=== PATIENT | female | born 1975 ===

== ENCOUNTER 2016-12-14 13:10 | Emergency (ER) | payer MEDICARE ==
[2016-12-14 13:10] VITALS: BMI 39.4
[2016-12-14 13:34] VITALS: RESP 20; O2SAT 99
[2016-12-14] MEDS ORDERED: Oxycodone/Acetaminophen 5/325 mg Tab PO STA ×2 (15:12→17:49)
[2016-12-14] MEDS ORDERED: Oxycodone/Acetaminophen 5/325 mg Tab ONE ×2 (15:31→18:04)
--- NOTE | 2016-12-14 16:34 | RAD ---
PROCEDURE: Right Foot Radiographs. HISTORY: Lateral pain COMPARISON: None. FINDINGS: BONES: Normal. No fracture. JOINTS: Normal. SOFT TISSUES: Normal. OTHER FINDINGS: None. IMPRESSION: Normal right foot radiographs.
--- NOTE | 2016-12-14 17:46 | C.PDOC ---
History Of Present Illness Pt has frequent falls due to her condition (PLS). She states she fall yesterday and c/o pain. - HPI Time Seen by Provider: 12/14/16 14:40 Chief Complaint (Nursing): Trauma History Per: Patient Injury Occurred (Timing): Days Ago: (1) Location Of Injury: Right: Foot, Left: Hip, Posterior: Neck Severity: Moderate Additional History Per: Prior Records - Fall Fall:Prior To Injury: Lost Balance Past Medical History Reviewed: Historical Data, Nursing Documentation, Vital Signs Vital Signs: Last Vital Signs Temp 98.2 F 12/14/16 13:31 Pulse 84 12/14/16 13:31 Resp 20 12/14/16 13:31 BP 118/73 12/14/16 13:31 Pulse Ox 99 12/14/16 17:55 - Medical History PMH: Anemia, Back Problems (ir-retrachtable back pain), Diabetes (type 2), Fibromyalgia, HTN, Chronic Pain Other PMH: Primary Lateral Sclerosis. Surgical History: Appendectomy, Cholecystectomy Family History: States: Unknown Family Hx - Social History Hx Tobacco Use: No Hx Alcohol Use: No Hx Substance Use: No - Immunization History Hx Tetanus Toxoid Vaccination: Yes Hx Influenza Vaccination: Yes (06/2015) Hx Pneumococcal Vaccination: Yes (2013) Review Of Systems Except As Marked, All Systems Reviewed And Found Negative. Constitutional: Negative for: Fever Cardiovascular: Negative for: Chest Pain Respiratory: Negative for: Shortness of Breath Gastrointestinal: Negative for: Vomiting, Abdominal Pain Musculoskeletal: Positive for: Neck Pain, Back Pain, Foot Pain (right) Skin: Negative for: Rash Neurological: Negative for: Seizures, Altered Mental Status, Headache Physical Exam - Physical Exam Appears: Non-toxic, No Acute Distress Skin: Normal Color, Warm, Dry, No Rash Head: Atraumatic, Normacephalic Eye(s): bilateral: PERRL, EOMI Neck: Normal ROM, Paracervical Tenderness, No Step Off Deformity, Supple Chest: Symmetrical, No Deformity Cardiovascular: Rhythm Regular Respiratory: Normal Breath Sounds, No Accessory Muscle Use Gastrointestinal/Abdominal: Soft, No Tenderness Back: No Vertebral Tenderness Extremity: Normal ROM, Tenderness (right foot and left hip), No Deformity Pulses: Left Dorsalis Pedis: Normal, Right Dorsalis Pedis: Normal Neurological/Psych: Oriented x3 ED Course And Treatment - Laboratory Results Urine POC: Negative O2 Sat by Pulse Oximetry: 99 Pulse Ox Interpretation: Normal - Other Rad Right foot x-rays X-Ray: Viewed By Me, Read By Radiologist Interpretation: IMPRESSION: Normal right foot radiographs. C-spine x-rays X-Ray: Interpreted by Me, Viewed By Me Interpretation: No acute fx or subluxation. Left hip x-rays X-Ray: Interpreted by Me, Viewed By Me Interpretation: No acute fx or dislocation. Reassessment Condition: Improved Disposition Counseled Patient/Family Regarding: Studies Performed, Diagnosis, Need For Followup, Rx Given - Disposition Referrals: Sudheer Antunez MD [Staff Provider] - Disposition: HOME/ ROUTINE Disposition Time: 18:07 Condition: IMPROVED Additional Instructions: Follow up with your doctor. Return to the ER if you develop redness, swelling, new weakness or numbness, worsening of symptoms or if you have any other concerns. Prescriptions: oxyCODONE/Acetaminophen [Percocet 5/325 mg Tab] 1 tab PO QID PRN #20 tab PRN Reason: Pain Instructions: Fall Prevention (ED) - Clinical Impression Clinical Impression: Fall, Cervical sprain, Right foot pain, Contusion of left hip
[2016-12-14 18:41] VITALS: BP 94/60; PULSE 76; TEMP 97.9
--- NOTE | 2016-12-15 12:50 | RAD ---
PROCEDURE: Cervical Spine Radiographs. HISTORY: Pain. COMPARISON: None. FINDINGS: BONES: Cervical spine straightening. . No cortical fracture. Tiny limbus vertebrae remnant possible bordering the anterior to C5 superior endplate. Limited visualization of the posterior elements of C7 - the shoulders are obscuring this area despite swimmer's view attempts Dens Intact. DISC SPACES: Normal. SOFT TISSUES: Normal. No prevertebral soft tissue swelling. OTHER FINDINGS: None. IMPRESSION: The posterior elements of C7 are suboptimally visualized due to obscuration by shoulders despite the additional swimmer's view No gross fractures apparent. If clinically indicated consider cervical spine CT
--- NOTE | 2016-12-15 14:41 | RAD ---
PROCEDURE: HISTORY: Pain s/p fall COMPARISON: 11/16/2015 TECHNIQUE: AP view of the pelvis and applicable frog leg views obtained. FINDINGS: There is anterior fusion hardware at L5-S1 appears grossly intact and similar as per the single frontal views Minimal bilateral superolateral hip joint space narrowing with minimal bilateral acetabular spurring is suggested -no change appreciated. No interval fracture or dislocation is suggested. Minimal sacroiliac sclerotic changes are present bilaterally. This also appears similar. Pubic symphyseal joint appears normal. An incidental bone island overlying the right superior acetabulum is [id number] IMPRESSION: No interval pathology noted. Findings as above
== END 2016-12-14 18:41 | disposition home or self-care (01) ==
LOC: C.ER 13:10
DX: S13.9XXA Sprain of joints and ligaments of unspecified parts of neck, initial encounter (principal); S70.02XA Contusion of left hip, initial encounter; M79.671 Pain in right foot; W18.39XA Other fall on same level, initial encounter; Y92.9 Unspecified place or not applicable; G12.21 Amyotrophic lateral sclerosis
CPT/HCPCS: 72040; 73502; 73630; 84703; 99285; G0480

== ENCOUNTER 2017-03-17 11:21 | Emergency (ER) | payer MEDICARE ==
[2017-03-17 11:22] VITALS: BMI 39.4
[2017-03-17 11:30] VITALS: O2SAT 99
[2017-03-17] MEDS ORDERED: Sodium Chloride 0.9% 1,000 ML IV ONE (12:20)
--- NOTE | 2017-03-17 12:20 | C.PDOC ---
History Of Present Illness 41 y/o female with Hx of PLS, chronic back pain and Spinal surgery presents to ED with complaints of left side of body weakness and increased back pain. Patient states she was on Fentanyl patch and reports seeing Neurologist [address] Antunez yesterday and had pain medication dose increased. Today Dr. Antunez sent patient to ED for MRI. Patient denies fever, chills, numbness or any other complaints at this time. Time Seen by Provider: 03/17/17 11:43 Chief Complaint (Nursing): Dizziness/Lightheaded History Per: Patient History/Exam Limitations: no limitations Onset/Duration Of Symptoms: Days Current Symptoms Are (Timing): Still Present Severity: Mild Exacerbating Factor(s): Movement Recent travel outside of the [place]: No Past Medical History Reviewed: Historical Data, Nursing Documentation, Vital Signs Vital Signs: Last Vital Signs Temp 97.8 F 03/17/17 15:25 Pulse 78 03/17/17 15:25 Resp 18 03/17/17 15:25 BP 103/68 03/17/17 15:25 Pulse Ox 99 03/17/17 15:59 - Medical History PMH: Anemia, Back Problems (ir-retrachtable back pain), Diabetes (type 2), Fibromyalgia, HTN, Chronic Pain Surgical History: Appendectomy, Cholecystectomy Family History: States: No Known Family Hx - Social History Hx Tobacco Use: No Hx Alcohol Use: No Hx Substance Use: No - Immunization History Hx Tetanus Toxoid Vaccination: Yes Hx Influenza Vaccination: Yes Hx Pneumococcal Vaccination: Yes (2013) Review Of Systems Except As Marked, All Systems Reviewed And Found Negative. Constitutional: Negative for: Fever, Chills Genitourinary: Positive for: Incontinence (At night). Negative for: Dysuria Musculoskeletal: Positive for: Back Pain, Other (Left side body pain) Skin: Negative for: Rash Neurological: Positive for: Weakness. Negative for: Numbness, Headache Physical Exam - Physical Exam Appears: Non-toxic, No Acute Distress, Other (Obese, Overweight) Skin: Normal Color, Warm, No Rash Head: Atraumatic Eye(s): bilateral: Normal Inspection Oral Mucosa: Moist Chest: Symmetrical Cardiovascular: Rhythm Regular Respiratory: Normal Breath Sounds, No Rales, No Rhonchi, No Wheezing Gastrointestinal/Abdominal: Soft, No Tenderness, No Guarding, No Rebound Back: Other (Left side weaker than right) Neurological/Psych: Oriented x3, Normal Speech, Normal Motor, Normal Sensation Gait: Other (Patient is able to ambulate with brace devices and arm crutches) ED Course And Treatment - Laboratory Results Result Diagrams: 03/17/17 12:31 03/17/17 12:31 Lab Interpretation: Normal Urine POC: Negative O2 Sat by Pulse Oximetry: 99 (RA) Pulse Ox Interpretation: Normal - Other Rad No standard instances X-Ray: Viewed By Me, Read By Radiologist Interpretation: FINDINGS: ALIGNMENT: Normal thoracic spinal alignment. Normal thoracic kyphosis. Stable general appearance compared to prior CT 08/18/2014. A benign hemangiomas incidentally noted T1 vertebral body, completely suppressing on STIR imaging. Overall marrow signal is dark in all sequences could reflect anemia or other myeloproliferative process. Endplate degenerate changes seen the mid thoracic spine anteriorly accompanying multilevel spondylosis. Thoracic spinal cord appears normal in course caliber contour and intrinsic signal the conus medullaris terminating T12-L1 disc interspace level. Prevertebral paraspinal soft tissues appear diffusely unremarkable. VERTEBRA : Vertebral body height are preserved. MARROW: As above. PARASPINAL SOFT TISSUES: As above. CORD: Unremarkable thoracic cord. No volume loss, signal abnormality or syrinx. DISCS: Mild to moderate multilevel disc desiccation is appreciated diffusely. No disc herniation identified. OTHER FINDINGS: None. IMPRESSION: Multilevel thoracic spondylosis is appreciate family anteriorly with no spinal stenosis or disc herniation appreciated throughout. Neural foramina and central canal appear widely patent without interval change greater prior CT 08/18/2014. A benign hemangiomas incidentally captured at the T1 vertebral body. FINDINGS: ALIGNMENT: Normal thoracic spinal alignment. Normal thoracic kyphosis. Stable general appearance compared to prior CT 2014. A benign hemangiomas incidentally noted T1 vertebral body, completely suppressing on STIR imaging. Overall marrow signal is dark in all sequences could reflect anemia or other myeloproliferative process. Endplate degenerate changes seen the mid thoracic spine anteriorly accompanying multilevel spondylosis. Thoracic spinal cord appears normal in course caliber contour and intrinsic signal the conus medullaris terminating T12-L1 disc interspace level. Prevertebral paraspinal soft tissues appear diffusely unremarkable. VERTEBRA : Vertebral body height are preserved. MARROW: As above. PARASPINAL SOFT TISSUES: As above. CORD: Unremarkable thoracic cord. No volume loss, signal abnormality or syrinx. DISCS: Mild to moderate multilevel disc desiccation is appreciated diffusely. No disc herniation identified. OTHER FINDINGS: None. IMPRESSION: Multilevel thoracic spondylosis is appreciate family anteriorly with no spinal stenosis or disc herniation appreciated throughout. Neural foramina and central canal appear widely patent without interval change greater prior CT 08/18/2014. A benign hemangiomas incidentally captured at the T1 vertebral body. Progress Note: Treated with IVF NSS and valium 5 mg PO. Case discussed with Dr Antunez who request MR of lumbar and thoracic spine. On re-evaluation patient is alert in no distress Reassessment Condition: Improved - Physician Consult Information Physician Contacted: Sudheer Antunez Outcome Of Conversation: requesting MRI Medical Decision Making Medical Decision Making: Discussed with who admitted he sent patient for MRI Plan: * MRI * Labs * UA * * Patient ambulates with canes and braces Disposition Discussed With Dr.: Sudheer Antunez Doctor Will See Patient In The: Hospital Counseled Patient/Family Regarding: Studies Performed, Diagnosis, Need For Followup - Disposition Referrals: Garret Uribe MD [Medical Doctor] - Sudheer Antunez MD [Staff Provider] - Disposition: HOME/ ROUTINE Disposition Time: 15:45 Condition: STABLE Additional Instructions: Follow up with your neurologist for further evaluation Instructions: Chronic Back Pain (ED), Back Pain (ED) Forms: [facility] (Slovenian) - POA Present On Arrival: None - Clinical Impression Clinical Impression: Low back pain - Scribe Statement The provider has reviewed the documentation as recorded by the Quetaibcrow Krishna All medical record entries made by the Scribcrow were at my direction and personally dictated by me. I have reviewed the chart and agree that the record accurately reflects my personal performance of the history, physical exam, medical decision making, and the department course for this patient. I have also personally directed, reviewed, and agree with the discharge instructions and disposition.
[2017-03-17 12:34] LABS: BASO % 0.3 % (0.0-2.0); EOS # 0.1 K/uL (0.0-0.7); EOS % 1.6 % (0.0-4.0); LYMPH # 1.9 K/uL (1.0-4.3); LYMPH % 23.9 % (20.0-40.0); MEAN CELL VOLUME 70.6 fL (81.0-99.0); MEAN CORPUSCULAR HGB CONC 31.2 g/dL (33.0-37.0); MEAN PLATELET VOLUME 8.7 fL (7.2-11.7); MONO # 0.5 K/uL (0.0-0.8); MONO % 6.4 % (0.0-10.0); RED CELL DISTRIBUTION WIDTH 15.9 % (11.5-14.5); WHITE BLOOD COUNT 7.7 K/uL (4.8-10.8)
[2017-03-17 12:45] LABS: ALKALINE PHOSPHATASE 89 U/L (38-126); ALT/SGPT 25 U/L (9-52); AST/SGOT 24 U/L (14-36); BILIRUBIN,TOTAL 0.3 mg/dL (0.2-1.3); BLOOD UREA NITROGEN 9 mg/dL (7-17); CALCIUM 8.2 mg/dl (8.6-10.4); CARBON DIOXIDE 25 mmol/L (22-30); CHLORIDE 98 mmol/L (98-107); GFR AFRICAN-AMERICAN > 60; GLUCOSE,RANDOM 119 mg/dL (65-105); POTASSIUM 3.8 mmol/L (3.6-5.2); SODIUM 137 mmol/L (132-148); TOTAL PROTEIN 7.9 g/dL (6.3-8.3)
[2017-03-17 12:57] LABS: RBC URINE 1 /hpf (0-3); URINE BILIRUBIN NEGATIVE (NEGATIVE); URINE BLOOD NEGATIVE (NEGATIVE); URINE COLOR Amber (YELLOW); URINE GLUCOSE (UA) NORMAL (Normal); URINE KETONE NEGATIVE (NEGATIVE); URINE LEUKOCYTE ESTERASE NEG Leu/uL (Negative); URINE PROTEIN NEGATIVE (NEGATIVE); URINE UROBILINOGEN NORMAL mg/dL (0.2-1.0); WBC URINE 1 /hpf (0-5)
--- NOTE | 2017-03-17 14:20 | MRI ---
PROCEDURE: MR THORACIC SPINE WITHOUT CONTRAST HISTORY: weakness COMPARISON: Thorax spine CT 08/18/2014 TECHNIQUE: Multiecho multiplanar sequences were performed through the thoracic spine without the use of intravenous contrast. FINDINGS: ALIGNMENT: Normal thoracic spinal alignment. Normal thoracic kyphosis. Stable general appearance compared to prior CT 08/18/2014. A benign hemangiomas incidentally noted T1 vertebral body, completely suppressing on STIR imaging. Overall marrow signal is dark in all sequences could reflect anemia or other myeloproliferative process. Endplate degenerate changes seen the mid thoracic spine anteriorly accompanying multilevel spondylosis. Thoracic spinal cord appears normal in course caliber contour and intrinsic signal the conus medullaris terminating T12-L1 disc interspace level. Prevertebral paraspinal soft tissues appear diffusely unremarkable. VERTEBRA: Vertebral body height are preserved. MARROW: As above PARASPINAL SOFT TISSUES: As above CORD: Unremarkable thoracic cord. No volume loss, signal abnormality or syrinx. DISCS: Mild to moderate multilevel disc desiccation is appreciated diffusely. No disc herniation identified. OTHER FINDINGS: None. IMPRESSION: Multilevel thoracic spondylosis is appreciate family anteriorly with no spinal stenosis or disc herniation appreciated throughout. Neural foramina and central canal appear widely patent without interval change greater prior CT 08/18/2014. A benign hemangiomas incidentally captured at the T1 vertebral body.
--- NOTE | 2017-03-17 15:08 | MRI ---
PROCEDURE: MR LUMBAR SPINE WITHOUT CONTRAST HISTORY: weakness COMPARISON: None available. TECHNIQUE: Multiecho multiplanar sequences were performed through the lumbar spine without the use of intravenous contrast. FINDINGS: Normal lumbar curvature is preserved. No fracture or spondylolisthesis identified with this patient again seen a status post anterior spinal fusion I compression plate and screws at L5 and S1 vertebral bodies and by intervertebral hardware at the L5-S1 intervertebral disc space. Signal dephasing at the L5-S1 level obscures the marrow at these vertebral bodies with remaining vertebral bodies diffusely unremarkable throughout, once again. Conus medullaris remains normal in intrinsic signal terminating at L1 with prevertebral and paraspinal and paraspinal soft tissues remaining diffusely unremarkable moderate hydration remains at the remaining intervertebral discs throughout the lumbar spine and incidentally viewed inferior thoracic intervertebral discs. T12-L1: No disc herniation, spinal canal stenosis or neural foraminal narrowing. L1-2: No disc herniation, spinal canal stenosis or neural foraminal narrowing. L2-3: Mild facet arthropathy is appreciated without disc herniation, central canal or neural foraminal stenosis. L3-4: There is some motion motion artifact distorting this level however facet arthropathy appears mild to moderate severity and encroaches the bilateral lateral recesses without significantly disturbing the thecal sac. Nevertheless borderline central stenosis results. No disc herniation. No significant neural foraminal stenosis L4-5: A mild degenerate stenosis caused by minimal generalized disc bulging and moderate facet arthropathy, asymmetric greater the left and right sides with encroachment noted at the left greater the right lateral recess. Mild left neural foraminal stenosis appreciate with none on the right. No disc herniation. L5-S1: No acute disc herniation is appreciated status post fusion here, however, resume bony fusion indents the ventral thecal sac once again without interval change somewhat encroachment lateral recesses without generalized central canal stenosis occurring. No neural foraminal stenosis. OTHER FINDINGS: None. IMPRESSION: 1. Status post anterior spinal fusion at L5-S1 compression plate as well as intervertebral device, unchanged in appearance in the interval. Posterior bony fusion creates a mild ventral epidural defect as discussed above, stable in the interval. 2. Interval increased degenerative disc and facet joint changes result in mild central stenosis at L4-5 and appear borderline at L3-4 without interval disc herniation.
[2017-03-17 15:26] VITALS: BP 103/68; PULSE 78; RESP 18; TEMP 97.8
== END 2017-03-17 16:08 | disposition home or self-care (01) ==
LOC: C.ER 11:21
DX: M54.5 Low back pain (principal)
CPT/HCPCS: 72146; 72148; 80053; 81001; 84703; 85025; 96360; 99285; J7040

== ENCOUNTER 2017-06-21 08:58 | Emergency (ER) | payer MEDICARE ==
[2017-06-21 08:58] VITALS: BMI 39.4
[2017-06-21 09:21] VITALS: BP 124/86; PULSE 78; RESP 18; TEMP 98.7; O2SAT 99
--- NOTE | 2017-06-21 09:33 | C.PDOC ---
History Of Present Illness 41 yr old female with PMHx of PLS, diabetes, chronic pain and fibromyalgia, presents to the ER stating this morning when she was getting out of bed she lost her balance and fell forward, hitting her face against the wall. Patient states she uses bilateral canes for balance. Reports of pain to the nose, associated with bleeding and swelling also reports of frontal facial pain and neck pain. Patient states the pain is 8/10. Patient states she used a fentanyl patch and percocet this morning. Denies LOC, head injury, vision changes, chest pain, SOB, nausea, vomiting, headache, weakness or numbness. - HPI Time Seen by Provider: 06/21/17 09:27 Chief Complaint (Nursing): Trauma History Per: Patient History/Exam Limitations: no limitations Onset/Duration Of Symptoms: Sudden Onset (OYSTER FLOATER) Past Medical History Reviewed: Historical Data, Nursing Documentation, Vital Signs Vital Signs: Last Vital Signs Temp 98.7 F 06/21/17 09:15 Pulse 78 06/21/17 09:15 Resp 18 06/21/17 09:15 BP 124/86 06/21/17 09:15 Pulse Ox 99 06/21/17 11:52 - Medical History PMH: Anemia, Back Problems (ir-retrachtable back pain), Diabetes (type 2), Fibromyalgia, HTN, Chronic Pain Surgical History: Appendectomy, Cholecystectomy Family History: States: No Known Family Hx - Social History Hx Tobacco Use: No Hx Alcohol Use: No Hx Substance Use: No - Immunization History Hx Tetanus Toxoid Vaccination: Yes Hx Influenza Vaccination: Yes Hx Pneumococcal Vaccination: Yes (2013) Review Of Systems Except As Marked, All Systems Reviewed And Found Negative. Constitutional: Positive for: Other ((+) Facial pain) Eyes: Negative for: Vision Change ENT: Positive for: Nose Pain (with bleeding and swelling.) Cardiovascular: Negative for: Chest Pain Respiratory: Negative for: Shortness of Breath Gastrointestinal: Negative for: Nausea, Vomiting Musculoskeletal: Positive for: Neck Pain Neurological: Negative for: Weakness, Numbness, Headache Physical Exam - Physical Exam Appears: Non-toxic, No Acute Distress, Other ((+) Obese.) Skin: Warm, Dry, Other ((+) Bruising to the forehead.) Head: Atraumatic, Normacephalic Eye(s): bilateral: Normal Inspection, PERRL, EOMI Nose: Other ((+) Bruising and swelling to the nose. Dry blood in the nares. ) Neck: Normal ROM, Supple, Other ((+) Mild midline tenderness) Chest: Symmetrical, No Tenderness Cardiovascular: Rhythm Regular, No Murmur Respiratory: Normal Breath Sounds, No Rales, No Rhonchi, No Stridor, No Wheezing Extremity: Normal ROM, No Swelling Neurological/Psych: Oriented x3, Normal Speech, Normal Motor ED Course And Treatment O2 Sat by Pulse Oximetry: 99 (RA) Pulse Ox Interpretation: Normal - CT Scan/US CT - Maxillofacial Other Rad Studies (CT/US): Read By Radiologist, Radiology Report Reviewed CT/US Interpretation: CT maxillofacial bones without IV contrast. Indication: fall, face, nose pain. Comparison: None available. Technique: Axial computed tomography images were obtained of the maxillofacial bones without the use of intravenous contrast. Coronal and sagittal reformatted images were generated and reviewed. This CT exam was performed using 1 or more of the falling dose reduction techniques: Automated exposure control, adjustment of the MAA and/or kV according to patient size, and/or use of iterative reconstruction technique. Radiation dose: Total exam DLP = 781.45 mGy-cm. Findings: Streak artifact from dental hardware. Facial soft tissue swelling particularly at the level of the nasal bones. The facial bones appear intact without acute displaced fracture identified. The orbits appear unremarkable. Temporomandibular joints are located. The mastoid air cells appear clear. The paranasal sinuses appear clear. No air-fluid levels appreciated. The visualized brain appears unremarkable. Incidental note is made of enlarged bilateral lymph nodes, nonspecific. Impression: Facial soft tissue swelling particularly at the level of the nasal bones. Otherwise, no acute findings identified. See above. CT - Cervical Spine Other Rad Studies (CT/US): Read By Radiologist, Radiology Report Reviewed CT/US Interpretation: CT cervical spine without IV contrast. Indication: Fall, against the wall, neck pain. Comparison: None available. Technique: Axial computed tomography images were obtained of the cervical spine without the use of intravenous contrast. Coronal and sagittal reformatted images were created and reviewed. This CT exam was performed using 1 or more of the falling dose reduction techniques: Automated exposure control, adjustment of the MAA and/or kV according to patient size, and/or use of iterative reconstruction technique. Radiation dose: Total exam DLP = 653.77 MGy-cm. Findings: Straightening of the normal cervical lordosis may be related to muscle spasm or positioning. There is no evidence of acute fracture or subluxation. There is preserved alignment, vertebral body height, intervertebral disc spaces. The prevertebral soft tissues and spinolaminar lines appear intact. The lateral masses are preserved. The dens tip is intact. There is proper alignment of the lateral masses of C1 with the C2 vertebral body. Included portions of the thyroid gland appear unremarkable. Included portions of lung apices demonstrate patchy opacities at the right lung apex, possibly infiltrate or atelectasis. Impression: No evidence of acute fracture or subluxation. Straightening of the normal cervical lordosis may be related to muscle spasm or positioning. Patchy opacities at the right lung apex, possibly infiltrate or atelectasis. Medical Decision Making Medical Decision Making: PLAN: * CT - Maxillofacial, Cervical Spine * POC Disposition Counseled Patient/Family Regarding: Diagnosis, Need For Followup - Disposition Disposition: HOME/ ROUTINE Disposition Time: 11:54 Condition: IMPROVED Instructions: RICE Therapy (ED) Forms: [facility] (Marshallese), General Discharge Instructions - POA Present On Arrival: None - Clinical Impression Clinical Impression: Contusion, Sprain - Scribe Statement The provider has reviewed the documentation as recorded by the Marlen Galeana Provider Attestation: All medical record entries made by the Marlen were at my direction and personally dictated by me. I have reviewed the chart and agree that the record accurately reflects my personal performance of the history, physical exam, medical decision making, and the department course for this patient. I have also personally directed, reviewed, and agree with the discharge instructions and disposition.
--- NOTE | 2017-06-21 11:05 | CT ---
CT maxillofacial bones without IV contrast Indication: fall, face, nose pain Comparison: None available. Technique: Axial computed tomography images were obtained of the maxillofacial bones without the use of intravenous contrast. Coronal and sagittal reformatted images were generated and reviewed. This CT exam was performed using 1 or more of the falling dose reduction techniques: Automated exposure control, adjustment of the MAA and/or kV according to patient size, and/or use of iterative reconstruction technique. Radiation dose: Total exam DLP = 781.45 mGy-cm. Findings: Streak artifact from dental hardware. Facial soft tissue swelling particularly at the level of the nasal bones. The facial bones appear intact without acute displaced fracture identified. The orbits appear unremarkable. Temporomandibular joints are located. The mastoid air cells appear clear. The paranasal sinuses appear clear. No air-fluid levels appreciated. The visualized brain appears unremarkable. Incidental note is made of enlarged bilateral lymph nodes, nonspecific. Impression: Facial soft tissue swelling particularly at the level of the nasal bones. Otherwise, no acute findings identified. See above.
--- NOTE | 2017-06-21 11:16 | CT ---
CT cervical spine without IV contrast Indication: Fall, against the wall, neck pain Comparison: None available Technique: Axial computed tomography images were obtained of the cervical spine without the use of intravenous contrast. Coronal and sagittal reformatted images were created and reviewed. This CT exam was performed using 1 or more of the falling dose reduction techniques: Automated exposure control, adjustment of the MAA and/or kV according to patient size, and/or use of iterative reconstruction technique. Radiation dose: Total exam DLP = 653.77 MGy-cm. Findings: Straightening of the normal cervical lordosis may be related to muscle spasm or positioning. There is no evidence of acute fracture or subluxation. There is preserved alignment, vertebral body height, intervertebral disc spaces. The prevertebral soft tissues and spinolaminar lines appear intact. The lateral masses are preserved. The dens tip is intact. There is proper alignment of the lateral masses of C1 with the C2 vertebral body. Included portions of the thyroid gland appear unremarkable. Included portions of lung apices demonstrate patchy opacities at the right lung apex, possibly infiltrate or atelectasis. Impression: No evidence of acute fracture or subluxation. Straightening of the normal cervical lordosis may be related to muscle spasm or positioning. Patchy opacities at the right lung apex, possibly infiltrate or atelectasis.
== END 2017-06-21 12:03 | disposition home or self-care (01) ==
LOC: C.ER 08:58
DX: S00.83XA Contusion of other part of head, initial encounter (principal); W01.198A Fall on same level from slipping, tripping and stumbling with subsequent striking against other object, initial encounter; Y93.89 Activity, other specified; Y92.003 Bedroom of unspecified non-institutional (private) residence as the place of occurrence of the external cause

== ENCOUNTER 2018-07-11 13:03 | Observation (INO) | payer MEDICARE ==
[2018-07-11 13:04] VITALS: BMI 39.4
--- NOTE | 2018-07-11 14:43 | C.PDOC ---
History Of Present Illness Patient brought in via BLS after slip and fall on floor today at home. Patient has PLS, chronic pain and fibromyalgia. She states she was mopping the floor and slipped and fell hurting her left thigh and leg, she felt a "pull and crunch". Patient states pain is severe and she took Oxycodone and Naproxen without relief. Patient requesting MRI. Time Seen by Provider: 07/11/18 14:17 Chief Complaint (Nursing): Lower Extremity Problem/Injury Past Medical History Vital Signs: Last Vital Signs Temp 98.2 F 07/11/18 13:28 Pulse 73 07/11/18 13:28 Resp 20 07/11/18 13:28 BP 126/70 07/11/18 13:28 Pulse Ox 97 07/11/18 13:28 - Medical History PMH: Anemia, Back Problems, Diabetes (type 2), Fibromyalgia, HTN, Seizures, Chronic Pain Surgical History: Appendectomy, Back Surgery (spinal fusion), Cholecystectomy Family History: States: Unknown Family Hx - Social History Hx Tobacco Use: No Hx Alcohol Use: No Hx Substance Use: No (Medical Marijuana) - Immunization History Hx Tetanus Toxoid Vaccination: Yes Hx Influenza Vaccination: Yes Hx Pneumococcal Vaccination: Yes Review Of Systems Except As Marked, All Systems Reviewed And Found Negative. Musculoskeletal: Positive for: Leg Pain Physical Exam - Physical Exam Appears: Non-toxic, No Acute Distress Skin: Warm, Dry, No Rash, No Ecchymosis Head: Atraumatic, Normacephalic Eye(s): bilateral: Normal Inspection, EOMI Cardiovascular: Rhythm Regular Respiratory: Normal Breath Sounds, No Wheezing Gastrointestinal/Abdominal: Soft (obese) Back: Normal Inspection, No Vertebral Tenderness, No Paraspinal Tenderness, Other (buttocks tender left side) Extremity: No Normal ROM (limited to left leg secondary to pain), No Calf Tenderness, No Deformity, No Swelling, Other (diffuse tenderness to left thigh anterior and posteriorly ) Extremity: Bilateral: Hips Non-Tender Neurological/Psych: Oriented x3, Normal Speech Gait: Unable To Assess ED Course And Treatment O2 Sat by Pulse Oximetry: 97 (RA) Pulse Ox Interpretation: Normal - CT Scan/US Lower Ext. CT Other Rad Studies (CT/US): Read By Radiologist CT/US Interpretation: FINDINGS: BONES: No evidence of acute displaced fracture nor dislocation.. Tiny elliptical shaped bone island or osteoma seen within the medial aspect distal right femoral metaphysis... Unremarkable. No dislocation. No degenerative changes. SOFT TISSUES: . No significant joint effusion. IMPRESSION: No evidence of acute displaced fracture nor dislocation. Medical Decision Making Medical Decision Making: Impression: Leg pain, muscle strain from fall Patient is demanding MRI because of her condition. I discussed case with DR Orozco who then spoke with patient and PMD DR Sudheer Antunez. The plan is to admit patient for observation to have MRI done inpatient. Patient given Morphine for pain. Disposition - Disposition Disposition: HOSPITALIZED Disposition Time: 14:47 Condition: STABLE - POA Present On Arrival: Falls Or Trauma - Clinical Impression Clinical Impression: Muscle strain of lower leg Decision To Admit - Pt Status Changed To: Hospital Disposition Of: Observation - . Bed Request Type: Regular Admitting Physician: Sudheer Antunez Patient Diagnosis: Muscle strain of lower leg
--- NOTE | 2018-07-11 15:58 | CT ---
Date of service: 07/11/2018 PROCEDURE: CT of the Left knee HISTORY: Status post fall with pain COMPARISON: Comparison made with prior plain film radiographs of the left 11/16/2015. TECHNIQUE: Contiguous axial images of the left hip were obtained. Coronal and sagittal reformats were generated. Radiation dose: Total exam DLP = 566.08 mGy-cm. This CT exam was performed using one or more of the following dose reduction techniques: Automated exposure control, adjustment of the mA and/or kV according to patient size, and/or use of iterative reconstruction technique. FINDINGS: BONES: No evidence of acute displaced fracture nor dislocation.. Tiny elliptical shaped bone island or osteoma seen within the medial aspect distal right femoral metaphysis... Unremarkable. No dislocation. No degenerative changes. SOFT TISSUES: . No significant joint effusion. IMPRESSION: No evidence of acute displaced fracture nor dislocation.
[2018-07-11] MEDS ORDERED: Morphine 4 MG/ML VIAL ONE (16:10)
[2018-07-11 16:46] LABS: MEAN CORPUSCULAR HEMOGLOBIN 25.8 pg (27.0-31.0); MEAN CORPUSCULAR HGB CONC 32.5 g/dL (33.0-37.0); MEAN PLATELET VOLUME 9.1 fL (7.2-11.7); RBC 4.66 Mil/uL (3.80-5.20); RED CELL DISTRIBUTION WIDTH 13.7 % (11.5-14.5); WHITE BLOOD COUNT 9.3 K/uL (4.8-10.8)
[2018-07-11 17:03] LABS: ALB/GLOB RATIO 1.1 (1.0-2.1); ALT/SGPT 41 U/L (9-52); AST/SGOT 58 U/L (14-36); BLOOD UREA NITROGEN 8 mg/dL (7-17); CALCIUM 8.9 mg/dl (8.6-10.4); GFR NON-AFRICAN AMERICAN > 60
[2018-07-11 17:06] LABS: MEAN CELL VOLUME 79.4 fL (81.0-99.0)
[2018-07-11 19:21] VITALS: RESP 20
[2018-07-12] MEDS: Metoprolol Succinate 100 mg XL Tab PO SCH (09:54)
--- NOTE | 2018-07-12 14:42 | MRI ---
MRI left thigh History: Injury. COMPARISON: None available. Technique: Multi-echo multiplanar sequences were performed through the left thigh without the use of intravenous contrast. Findings: Apparent complete rupture of the proximal left hamstring tendon origins from its insertion on the ischial tuberosity with tendon retraction measuring approximately 2.3 centimeters. In addition, there is a large amount of increased signal seen within the visualized musculature of the posterior and medial thigh including the adductor muscle, semimembranosus muscle, semi tendinosis muscle, and proximal portion of the long head of the biceps femoris muscle suggestive for partial intramuscular tearing and or high grade strain. Prominent amount of fluid and edema noted within the musculature and adjacent myofascial planes. In addition, there appears to be a prominent hematogenous collection/hematoma demonstrating heterogeneous T1 signal, heterogeneously increased T2 signal, and increased STIR signal seen within the posterior thigh best seen on series 7, image 23 and series 2, image 13 measuring up to 7.3 x 3.2 x 15.7 centimeters seen at the level between the myofascial planes of the adductor muscle, semi membranous muscle, and semitendinosis muscles at their proximal to mid aspects. Additional etiologies are not excluded and continued interval follow-up is recommended to ensure resolution and exclude additional etiologies such as underlying mass lesion. Clinical correlation. Fluid and edema noted at the level of the left greater trochanteric bursa. Visualized osseous structures appear grossly preserved. Heterogeneity of the visualized marrow with patchy decreased T1 signal suggestive for hematopoietic marrow reconversion. Impression: Apparent complete rupture of the proximal left hamstring tendon origins from its insertion on the ischial tuberosity with tendon retraction measuring approximately 2.3 centimeters. In addition, there is a large amount of increased signal seen within the visualized musculature of the posterior and medial thigh including the adductor muscle, semimembranosus muscle, semi tendinosis muscle, and proximal portion of the long head of the biceps femoris muscle suggestive for partial intramuscular tearing and or high grade strain. Prominent amount of fluid and edema noted within the musculature and adjacent myofascial planes. In addition, there appears to be a prominent hematogenous collection/hematoma demonstrating heterogeneous T1 signal, heterogeneously increased T2 signal, and increased STIR signal seen within the posterior thigh best seen on series 7, image 23 and series 2, image 13 measuring up to 7.3 x 3.2 x 15.7 centimeters seen at the level between the myofascial planes of the adductor muscle, semi membranous muscle, and semitendinosis muscles at their proximal to mid aspects. Additional etiologies are not excluded and continued interval follow-up is recommended to ensure resolution and exclude additional etiologies such as underlying mass lesion. Clinical correlation. Fluid and edema noted at the level of the left greater trochanteric bursa.
[2018-07-12] MEDS: Enoxaparin 40 mg Syringe SC SCH (16:17)
--- NOTE | 2018-07-12 20:17 | CP.PCM.HP ---
History of Present Illness - History of Present Illness History of Present Illness: Patient brought in via BLS after slip and fall on floor today at home. Patient has PLS, chronic pain and fibromyalgia. She states she was mopping the floor and slipped and fell hurting her left thigh and leg, she felt a "pull and crunch". Patient states pain is severe and she took Oxycodone and Naproxen without relief. Patient requesting MRI. > After above events I was called by and presented with the situation. Recommendation was to give patient pain medication and discharge her home. [place] had been on multiple pain medications because of her peripheral lateral sclerosis, fibromyalgia, seizures. diabetes, hypertension, and get dysfunction. Patient lives independently with her roommate who is also disabled. Patient is unable to stand and carry her weight when seen. As patient was unable to care for herself I requested that patient be admitted for observation and in order to be able to obtain some much-needed testing And make sure patient is safe and did not sustain any injuries. Present on Admission - Present on Admission Any Indicators Present on Admission: No History of DVT/PE: No History of Uncontrolled Diabetes: No Urinary Catheter: No Decubitus Ulcer Present: No Decubitus Ulcer Location: none History Surgical Site Infection Following: None Review of Systems - Review of Systems All systems: reviewed and no additional remarkable complaints except Review of Systems: inability to walk 2ndry to pain Past Patient History - Infectious Disease Hx of Infectious Diseases: None - Tetanus Immunizations Tetanus Immunization: Unknown - Past Medical History & Family History Past Medical History?: Yes Past Family History: Reviewed and not pertinent - Past Social History Smoking Status: Never Smoked Chewing Tobacco Use: No Cigar Use: No (in medical marijuana program) Occupation: 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, a variant of Aline Gehrig's Alcohol: Social Drugs: Cannabis Home Situation {Lives}: With Family, Roommate - CARDIAC Hx Hypertension: Yes - PULMONARY Hx Respiratory Disorders: No - NEUROLOGICAL Hx Seizures: Yes - HEENT Hx HEENT Problems: No - ENDOCRINE/METABOLIC Hx Endocrine Disorders: Yes Hx Diabetes Mellitus Type 2: Yes - HEMATOLOGICAL/ONCOLOGICAL Hx Anemia: Yes - INTEGUMENTARY Hx Dermatological Problems: No - MUSCULOSKELETAL/RHEUMATOLOGICAL Hx Musculoskeletal Disorders: Yes Hx Degenerative Joint Disease: Yes (spinal) - GASTROINTESTINAL Hx Gastrointestinal Disorders: Yes Hx Nausea: Yes - GENITOURINARY/GYNECOLOGICAL Hx Genitourinary Disorders: No - PSYCHIATRIC Hx Substance Use: No (Medical Marijuana) - SURGICAL HISTORY Hx Appendectomy: Yes Hx Cholecystectomy: Yes - ANESTHESIA Hx Anesthesia: Yes Hx Anesthesia Reactions: No Hx Malignant Hyperthermia: No Meds Allergies/Adverse Reactions: Allergies Allergy/AdvReac Type Severity Reaction Status Date / Time black pepper Allergy Verified 06/21/17 09:25 shellfish derived Allergy Verified 06/21/17 09:25 iv contrast Allergy Uncoded 03/17/17 11:31 Physical Exam - Constitutional Appears: In Acute Distress Additional comments: 2ndry pain of left posterior thigh - Head Exam Head Exam: ATRAUMATIC, NORMAL INSPECTION - Eye Exam Eye Exam: Normal appearance Pupil Exam: NORMAL ACCOMODATION - ENT Exam ENT Exam: Mucous Membranes Moist, Normal Exam - Neck Exam Neck exam: Positive for: Normal Inspection - Respiratory Exam Respiratory Exam: Clear to Auscultation Bilateral, NORMAL BREATHING PATTERN - Cardiovascular Exam Cardiovascular Exam: REGULAR RHYTHM - GI/Abdominal Exam GI & Abdominal Exam: Normal Bowel Sounds, Soft. absent: Tenderness - Rectal Exam Rectal Exam: NORMAL INSPECTION - Exam Exam: Circumcision, NORMAL INSPECTION External exam: NORMAL EXTERNAL EXAM Speculum exam: NORMAL SPECULUM EXAM Bimanual exam: NORMAL BIMANUAL EXAM - Extremities Exam Extremities exam: Positive for: tenderness Additional comments: + fist sized mass on L posterior thigh with discoloration - Back Exam Back exam: NORMAL INSPECTION - Neurological Exam Neurological exam: Alert, CN II-XII Intact, Normal Gait, Oriented x3, Reflexes Normal - Psychiatric Exam Psychiatric exam: Normal Affect, Normal Mood - Skin Skin Exam: Dry, Intact, Normal Color, Warm Results - Vital Signs Recent Vital Signs: Last Vital Signs Temp 98.2 F 07/12/18 15:25 Pulse 87 07/12/18 15:25 Resp 20 07/12/18 15:25 BP 100/65 07/12/18 15:25 Pulse Ox 97 07/12/18 15:25 - Labs Result Diagrams: 07/13/18 11:06 07/13/18 11:06 Labs: Laboratory Results - last 24 hr 07/11/18 07/12/18 07/12/18 21:15 07:29 11:32 POC Glucose (mg/dL) 142 H 140 H 135 H Assessment & Plan (1) Muscle strain of lower leg Assessment and Plan: Will order for a CT of the lower extremity to rule out any occult bony injuries. Status: Acute (2) Ambulatory dysfunction Assessment and Plan: Will observe patient's ambulation relative to her normal patterns. Currently it is difficult to evaluate whether from physical exam all injuries were properly addressed and patient's safety assured if sent home. Aat least an observation admission is warranted Status: Acute (3) Contusion Assessment and Plan: Pain control an observation for development of any hematogenous collection Status: Acute (4) Lateral sclerosis Assessment and Plan: Mainly peripheral in location but Progressive in nature. Patient suffers from frequent Falls and will obtain Physical Therapy consult for balance and gait remediation. Status: Acute
--- NOTE | 2018-07-13 08:43 | CP.PCM.CON ---
<Olga LidiaCarolin A - Last Filed: 07/13/18 12:42> History of Present Illness - History of Present Illness History of Present Illness: orthopedic consult Dr. Preston 42F complains of left leg pain after slip and fall 2 days ago at home while mopping. She says her legs split and as she went down. 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 She uses crutches to ambulate, but is able to walk around her apartment most days without any assistive device. She denies numbness/tingling. Denies CP/SOB/dizziness. No head injury. No pain in other extremities. Kevin n/v/fever/chills. Review of Systems - Review of Systems All systems: reviewed and no additional remarkable complaints except - Cardiovascular Cardiovascular: As Per HPI - Respiratory Respiratory: As Per HPI - Gastrointestinal Gastrointestinal: As Per HPI - Musculoskeletal Musculoskeletal: As Per HPI - Neurological Neurological: As Per HPI - Hematologic/Lymphatic Hematologic: absent: As Per HPI, Easy Bleeding, Easy Bruising, Lymphadenopathy, Other Past Patient History - Infectious Disease Hx of Infectious Diseases: None - Past Medical History & Family History Past Medical History?: Yes Past Family History: Reviewed and not pertinent - Past Social History Smoking Status: Never Smoked - CARDIAC Hx Hypertension: Yes - PULMONARY Hx Respiratory Disorders: No - NEUROLOGICAL Hx Seizures: Yes - HEENT Hx HEENT Problems: No - ENDOCRINE/METABOLIC Hx Endocrine Disorders: Yes Hx Diabetes Mellitus Type 2: Yes - HEMATOLOGICAL/ONCOLOGICAL Hx Anemia: Yes - INTEGUMENTARY Hx Dermatological Problems: No - MUSCULOSKELETAL/RHEUMATOLOGICAL Hx Musculoskeletal Disorders: Yes Hx Degenerative Joint Disease: Yes (spinal) Hx Falls: Yes (Primary lateral sclerosis) - GASTROINTESTINAL Hx Gastrointestinal Disorders: Yes Hx Nausea: Yes - GENITOURINARY/GYNECOLOGICAL Hx Genitourinary Disorders: No - PSYCHIATRIC Hx Substance Use: No (Medical Marijuana) - SURGICAL HISTORY Hx Appendectomy: Yes Hx Cholecystectomy: Yes - ANESTHESIA Hx Anesthesia: Yes Hx Anesthesia Reactions: No Hx Malignant Hyperthermia: No Meds Allergies/Adverse Reactions: Allergies Allergy/AdvReac Type Severity Reaction Status Date / Time black pepper Allergy Verified 06/21/17 09:25 shellfish derived Allergy Verified 06/21/17 09:25 iv contrast Allergy Uncoded 03/17/17 11:31 - Medications Medications: Current Medications Alprazolam (Xanax) 0.5 mg PO HS PRN PRN Reason: Anxiety Last Admin: 07/12/18 21:06 Dose: 0.5 mg Baclofen (Lioresal) 20 mg PO QID [facility] Last Admin: 07/12/18 22:21 Dose: 20 mg Duloxetine HCl (Cymbalta) 30 mg PO 1000,2200 [facility] Last Admin: 07/12/18 21:10 Dose: 30 mg Enoxaparin Sodium (Lovenox) 40 mg SC DAILY [facility] Last Admin: 07/12/18 16:17 Dose: 40 mg Gabapentin (Neurontin) 600 mg PO Q8 [facility] Last Admin: 07/12/18 21:10 Dose: 600 mg Levetiracetam (Keppra) 250 mg PO 1000,2200 [facility] Last Admin: 07/12/18 21:10 Dose: 250 mg Metformin HCl (Glucophage) 500 mg PO BIDCC [facility] Last Admin: 07/13/18 08:26 Dose: 500 mg Metoprolol Succinate (Toprol Xl) 100 mg PO DAILY [facility] Last Admin: 07/12/18 09:54 Dose: 100 mg Morphine Sulfate (Morphine) 2 mg IVP Q4 PRN PRN Reason: pain Last Admin: 07/13/18 08:38 Dose: 2 mg Ondansetron HCl (Zofran Inj) 4 mg IVP Q6 PRN PRN Reason: Nausea/Vomiting Last Admin: 07/12/18 22:31 Dose: 4 mg Pneumococcal Polyvalent Vaccine (Pneumovax 23 Vaccine) 0.5 ml IM .ONCE ONE Stop: 07/14/18 10:01 Zolpidem Tartrate (Ambien) 5 mg PO [facility] Last Admin: 07/12/18 21:10 Dose: 5 mg Physical Exam - Constitutional Appears: Well, No Acute Distress - Head Exam Head Exam: ATRAUMATIC - Neck Exam Neck exam: Positive for: Full Rom, Normal Inspection - Extremities Exam Additional comments: lies on right side. TTP to posterior left thigh, worse proximally, swelling noted to same. +ROM ankle DF/PF 4+/5, sensation intact LLE calves soft NT neg homans +DP/PT pulses - Neurological Exam Neurological exam: Alert, Oriented x3 - Psychiatric Exam Psychiatric exam: Normal Affect, Normal Mood - Skin Skin Exam: Dry, Intact, Warm Results - Vital Signs Recent Vital Signs: Last Vital Signs Temp 98.6 F 07/13/18 08:38 Pulse 119 H 07/13/18 08:38 Resp 20 07/13/18 08:38 BP 126/82 07/13/18 08:38 Pulse Ox 98 07/13/18 08:38 - Labs Result Diagrams: 07/13/18 11:06 07/13/18 11:06 Labs: Laboratory Results - last 24 hr 07/12/18 11:32 POC Glucose (mg/dL) 135 H - Impressions Impression: atient Name / ID : [id number] CHIU / [id number] Exam Date : 07/12/2018 10:28:11 ( Approved ) Study Comment : Sex / Age : F / 42Y Creator : Peter Patricia MD Dictator : Peter Patricia MD Parts Identification Technician : Rigger Apprentice : Peter Patricia MD Approver2 : Report Date : 07/12/2018 14:36:20 My Comment : MRI left thigh History: Injury. COMPARISON: None available. Technique: Multi-echo multiplanar sequences were performed through the left thigh without the use of intravenous contrast. Findings: Apparent complete rupture of the proximal left hamstring tendon origins from its insertion on the ischial tuberosity with tendon retraction measuring approximately 2.3 centimeters. In addition, there is a large amount of increased signal seen within the visualized musculature of the posterior and medial thigh including the adductor muscle, semimembranosus muscle, semi tendinosis muscle, and proximal portion of the long head of the biceps femoris muscle suggestive for partial intramuscular tearing and or high grade strain. Prominent amount of fluid and edema noted within the musculature and adjacent myofascial planes. In addition, there appears to be a prominent hematogenous collection/hematoma demonstrating heterogeneous T1 signal, heterogeneously increased T2 signal, and increased STIR signal seen within the posterior thigh best seen on series 7, image 23 and series 2, image 13 measuring up to 7.3 x 3.2 x 15.7 centimeters seen at the level between the myofascial planes of the adductor muscle, semi membranous muscle, and semitendinosis muscles at their proximal to mid aspects. Additional etiologies are not excluded and continued interval follow-up is recommended to ensure resolution and exclude additional etiologies such as underlying mass lesion. Clinical correlation. Fluid and edema noted at the level of the left greater trochanteric bursa. Visualized osseous structures appear grossly preserved. Heterogeneity of the visualized marrow with patchy decreased T1 signal suggestive for hematopoietic marrow reconversion. Impression: Apparent complete rupture of the proximal left hamstring tendon origins from its insertion on the ischial tuberosity with tendon retraction measuring approximately 2.3 centimeters. In addition, there is a large amount of increased signal seen within the visualized musculature of the posterior and medial thigh including the adductor muscle, semimembranosus muscle, semi tendinosis muscle, and proximal portion of the long head of the biceps femoris muscle suggestive for partial intramuscular tearing and or high grade strain. Prominent amount of fluid and edema noted within the musculature and adjacent myofascial planes. In addition, there appears to be a prominent hematogenous collection/hematoma demonstrating heterogeneous T1 signal, heterogeneously increased T2 signal, and increased STIR signal seen within the posterior thigh best seen on series 7, image 23 and series 2, image 13 measuring up to 7.3 x 3.2 x 15.7 centimeters seen at the level between the myofascial planes of the adductor muscle, semi membranous muscle, and semitendinosis muscles at their proximal to mid aspects. Additional etiologies are not excluded and continued interval follow-up is recommended to ensure resolution and exclude additional etiologies such as underlying mass lesion. Clinical correlation. Fluid and edema noted at the level of the left greater trochanteric bursa. Assessment & Plan (1) Complete rupture of left proximal hamstring tendon Assessment and Plan: due to leg swelling, will check dopplers r/o DVT Dr. Yeboah not construction executive, defers consult to ortho construction executive Dr. Kary Preston states non operative mgmt, NWB with left knee immobilizer, PT recommend continued VTE proph as at risk for VTE, defer to Dr. Antunez patient to follow up as outpt ortho in plan per Dr. Preston Status: Acute (2) Lateral sclerosis Status: Acute <Anna Shaver S - Last Filed: 07/13/18 22:32> History of Present Illness - History of Present Illness History of Present Illness: Patient seen and examined today, 07/13/18. complains of 9/10 pain at the left buttocks. Pain with hip extension or knee flexion localized to the L buttocks. Denies numbness, tingling, syncope, headache, nausea and vomiting, chest pain, shortness of breath, calf pain. Physical Exam - Extremities Exam Additional comments: right lower extremity: - Tenderness to palpation - swelling/erythema/warmth/ecchymosis, full range of motion at all joints without pain +5/5 motor strength hip flexion/extension, knee flexion/extension, ankle dorsiflexion/plantarflexion, toes up and down Sensory intact L2-S1, deep peroneal nerve/ti tibial nerve/superficial peroneal nerve 2+ dorsalis pedis pulse, brisk cap refill all toes Calves soft and nontender bilaterally Left lower extremity: + + + Tenderness to palpation at buttocks/hamstring proximal insertion, - swelling/erythema/warmth/ecchymosis Full range of motion at all joints with pain at posterior hip/buttocks + Pain with resisted hip extension and knee flexion +5/5 motor strength hip flexion/extension(with pain), knee flexion(with pain)/extension, ankle dorsiflexion/plantarflexion, toes up and down Sensory intact L2-S1, deep peroneal nerve/ti tibial nerve/superficial peroneal nerve 2+ dorsalis pedis pulse, brisk cap refill all toes Results - Vital Signs Recent Vital Signs: Last Vital Signs Temp 98.2 F 07/13/18 15:00 Pulse 98 H 07/13/18 15:00 Resp 20 07/13/18 15:00 BP 123/77 07/13/18 15:00 Pulse Ox 96 07/13/18 15:00 - Labs Result Diagrams: 07/13/18 11:06 07/13/18 11:06 Labs: Laboratory Results - last 24 hr 07/12/18 07/12/18 07/13/18 17:05 20:49 07:12 WBC RBC Hgb Hct MCV MCH MCHC RDW Plt Count MPV Sodium Potassium Chloride Carbon Dioxide Anion Gap BUN Creatinine Est GFR ( Amer) Est GFR (Non-Af Amer) POC Glucose (mg/dL) 126 H 151 H 152 H Random Glucose Calcium 07/13/18 07/13/18 07/13/18 11:06 11:06 11:13 WBC 7.4 RBC 4.49 Hgb 11.7 Hct 35.9 MCV 79.9 L MCH 26.1 L MCHC 32.7 L RDW 13.7 Plt Count 220 MPV 9.0 Sodium 136 Potassium 4.0 Chloride 98 Carbon Dioxide 27 Anion Gap 14 BUN 9 Creatinine 0.5 L Est GFR ( Amer) > 60 Est GFR (Non-Af Amer) > 60 POC Glucose (mg/dL) 192 H Random Glucose 194 H Calcium 9.0 07/13/18 16:28 WBC RBC Hgb Hct MCV MCH MCHC RDW Plt Count MPV Sodium Potassium Chloride Carbon Dioxide Anion Gap BUN Creatinine Est GFR ( Amer) Est GFR (Non-Af Amer) POC Glucose (mg/dL) 153 H Random Glucose Calcium Assessment & Plan (1) Complete rupture of left proximal hamstring tendon Assessment and Plan: diagnosis = left hip: #1 proximal hamstring avulsion/tear #2 multiple thigh muscle partial tears/sprains #3 large posterior thigh hematoma Plan: L hip: -Clinically, complete proximal hamstring avulsion/tear with retraction -confirmed on recent MRI -MRI done today shows complete proximal hamstring tear with retraction 2cm, multiple thigh muscles partial tears and sprains, large posterior thigh hematoma. -Not ideal surgical candidate for proximal hamstring repair/reattachment. Baseline motor dysfunction. Motorized wheelchair ambulator most of the time at baseline. Risk versus reward of proximal hamstring repair not in favor of undergoing this open invasive procedure on this patient. -Discussed at length treatment options with the patient today , she would like to proceed with conservative treatment only -Will be placed in knee immobilizer left hip to start conservative tx, arrangements have been for patient to get a hip abduction brace as an outpatient -DVT prophylaxis unless medically contraindicated -Pain control -ice to posterior thigh -strict nonweightbearing left lower extremity with knee immobilizer on at all times until she obtains the hip abduction brace -Okay for DC home today for ortho point of view -Please contact me with any questions, concerns, updates at [phone]. Thank you for allowing me to contribute to the care of your patient. Anna Preston MD Orthopedic Surgery Status: Acute
[2018-07-13] MEDS: Metoprolol Succinate 100 mg XL Tab PO SCH (11:00)
[2018-07-13] MEDS: Enoxaparin 40 mg Syringe SC SCH (11:00)
[2018-07-13 11:12] LABS: HEMOGLOBIN 11.7 g/dL (11.0-16.0); MEAN CELL VOLUME 79.9 fL (81.0-99.0); MEAN CORPUSCULAR HEMOGLOBIN 26.1 pg (27.0-31.0); MEAN CORPUSCULAR HGB CONC 32.7 g/dL (33.0-37.0); RBC 4.49 Mil/uL (3.80-5.20); RED CELL DISTRIBUTION WIDTH 13.7 % (11.5-14.5); WHITE BLOOD COUNT 7.4 K/uL (4.8-10.8)
[2018-07-13 11:31] LABS: BLOOD UREA NITROGEN 9 mg/dL (7-17); GFR NON-AFRICAN AMERICAN > 60
--- NOTE | 2018-07-13 11:43 | CARD ---
APPROVED REPORT Date of service: 07/12/2018 EKG Measurement Heart [id number] <Conclusion> Normal sinus rhythm Possible Anterior infarct, age undetermined Abnormal ECG
--- NOTE | 2018-07-13 13:38 | VASCLAB ---
Date of service: 07/13/2018 PROCEDURE: Lower Extremity Venous Duplex Exam. HISTORY: Leg swelling, r/o DVT PRIORS: 05/15/2015, normal. TECHNIQUE: Bilateral common femoral, femoral, popliteal and posterior tibial, peroneal and great saphenous veins were evaluated. Flow was assessed with color Doppler, compressibility, assessment of phasic flow and augmentation response. Report prepared by MAGNO Matson FINDINGS: RIGHT: 1. Common Femoral Vein: 1.1. Compressibility - Fully compressible: Thrombus - None : Flow - Phasic: Augmentation -Normal: Reflux - None. 2. Femoral Vein: 2.1. Compressibility - Fully compressible: Thrombus - None : Flow - Phasic: Augmentation -Normal: Reflux - None. 3. Popliteal Vein: 3.1. Compressibility - Fully compressible: Thrombus - None : Flow - Phasic: Augmentation -Normal: Reflux - None. 4. Posterior Tibial Vein: 4.1. Compressibility - Fully compressible: Thrombus - None: Flow - Phasic: Augmentation -Normal: Reflux - None. 5. Peroneal Vein: 5.1. Compressibility - Fully compressible: Thrombus - None: Flow - Phasic: Augmentation -Normal: Reflux - None. 6. Great Saphenous Vein: 6.1. Compressibility - Fully compressible: Thrombus - None: Flow - Phasic: Augmentation - Normal: Reflux - None. LEFT: 1. Common Femoral Vein: 1.1. Compressibility - Fully compressible: Thrombus - None: Flow - Phasic: Augmentation -Normal: Reflux - None. 2. Femoral Vein: 2.1. Compressibility - Fully compressible: Thrombus - None: Flow - Phasic: Augmentation -Normal: Reflux - None. 3. Popliteal Vein: 3.1. Compressibility - Fully compressible: Thrombus - None : Flow - Phasic: Augmentation -Normal: Reflux - None. 4. Posterior Tibial Vein: 4.1. Compressibility - Fully compressible: Thrombus - None: Flow - Phasic: Augmentation -Normal: Reflux - None. 5. Peroneal Vein: 5.1. Compressibility - Fully compressible: Thrombus - None: Flow - Phasic: Augmentation -Normal: Reflux - None. 6. Great Saphenous Vein: 6.1. Compressibility - Fully compressible: Thrombus - None: Flow - Phasic: Augmentation - Normal: Reflux - None. OTHER FINDINGS: Right: None significant. Left: None significant. IMPRESSION: Right: No evidence of deep or superficial vein thrombosis of the right lower extremity. Normal valve function noted of the right side. Left: No evidence of deep or superficial vein thrombosis of the left lower extremity. Normal valve function noted of the left side.
[2018-07-13 16:08] VITALS: BP 123/77; PULSE 98; TEMP 98.2; O2SAT 96
[2018-07-13] MEDS ORDERED: Pneumococcal 23-Valent Vaccine IM ONE (21:45)
--- NOTE | 2018-07-15 04:21 | CP.PCM.DIS ---
Provider - Provider Date of Admission: 07/11/18 14:38 Attending physician: Sudheer Antunez MD Consults: 07/13/18 16:34 Consult [Orthopedic Consult] Routine Consulting Provider: Anna Shaver Consulting Physician: Anna Shaver Reason for Consult: rupture hamstring tendon Time Spent in preparation of Discharge (in minutes): 30 Diagnosis - Discharge Diagnosis (1) Complete rupture of left proximal hamstring tendon Status: Acute Comment: will obtain outpatient Ortho as this is a major leg muscle group, right thing to do would be to reattach said tendon to body of muscle. (2) Muscle strain of lower leg Status: Resolved (3) Ambulatory dysfunction Status: Chronic Comment: present as part of pt's PLS, but the issue of a ruptured major muscle group of the leg makes ambulation of a 42 yo overweight female with muscle weakness to begin with even more echallenging. prob PT when and if surgery is done (4) Contusion Status: Acute (5) Lateral sclerosis Status: Chronic Hospital Course - Lab Results Lab Results: Most Recent Lab Values WBC 7.4 K/uL (4.8-10.8) 07/13/18 11:06 RBC 4.49 Mil/uL (3.80-5.20) 07/13/18 11:06 Hgb 11.7 g/dL (11.0-16.0) 07/13/18 11:06 Hct 35.9 % (34.0-47.0) 07/13/18 11:06 MCV 79.9 fL (81.0-99.0) L 07/13/18 11:06 MCH 26.1 pg (27.0-31.0) L 07/13/18 11:06 MCHC 32.7 g/dL (33.0-37.0) L 07/13/18 11:06 RDW 13.7 % (11.5-14.5) 07/13/18 11:06 Plt Count 220 K/uL (130-400) 07/13/18 11:06 MPV 9.0 fL (7.2-11.7) 07/13/18 11:06 Sodium 136 mmol/L (132-148) 07/13/18 11:06 Potassium 4.0 mmol/L (3.6-5.2) 07/13/18 11:06 Chloride 98 mmol/L (98-107) 07/13/18 11:06 Carbon Dioxide 27 mmol/L (22-30) 07/13/18 11:06 Anion Gap 14 (10-20) 07/13/18 11:06 BUN 9 mg/dL (7-17) 07/13/18 11:06 Creatinine 0.5 mg/dL (0.7-1.2) L 07/13/18 11:06 Est GFR ( Amer) > 60 07/13/18 11:06 Est GFR (Non-Af Amer) > 60 07/13/18 11:06 POC Glucose (mg/dL) 153 mg/dL (65-110) H 07/13/18 16:28 Random Glucose 194 mg/dL (65-105) H 07/13/18 11:06 Calcium 9.0 mg/dl (8.6-10.4) 07/13/18 11:06 Total Bilirubin 0.4 mg/dL (0.2-1.3) 07/11/18 16:42 AST 58 U/L (14-36) H 07/11/18 16:42 ALT 41 U/L (9-52) 07/11/18 16:42 Alkaline Phosphatase 92 U/L (38-126) 07/11/18 16:42 Total Protein 7.9 g/dL (6.3-8.3) 07/11/18 16:42 Albumin 4.0 g/dL (3.5-5.0) 07/11/18 16:42 Globulin 3.8 gm/dL (2.2-3.9) 07/11/18 16:42 Albumin/Globulin Ratio 1.1 (1.0-2.1) 07/11/18 16:42 Discharge Exam - Head Exam Head Exam: ATRAUMATIC, NORMAL INSPECTION Discharge Plan - Follow Up Plan Condition: STABLE Disposition: HOME/ ROUTINE Instructions: Hamstring Injury (GEN), Tendon Rupture (GEN), Tendon Rupture, Lpn Private Duty (GEN)
== END 2018-07-13 21:35 | disposition home or self-care (01) ==
LOC: C.ER 13:03 → C.9E 14:38 → C.3T 18:19
PROVIDERS: ADMIT Family Medicine; ATTEND Family Medicine
DX: S86.919A Strain of unspecified muscle(s) and tendon(s) at lower leg level, unspecified leg, initial encounter (principal); S70.10XA Contusion of unspecified thigh, initial encounter; E11.9 Type 2 diabetes mellitus without complications; G89.29 Other chronic pain; I10 Essential (primary) hypertension; G12.23 Primary lateral sclerosis; E66.3 Overweight; Z98.1 Arthrodesis status; W01.0XXA Fall on same level from slipping, tripping and stumbling without subsequent striking against object, initial encounter; M79.7 Fibromyalgia
CPT/HCPCS: 36415; 73700; 73718; 80048; 80053; 82948; 85027; 90732; 93005; 93970; 96372; 96374; 96375; 96376; 99285; G0009; G0378; J1650; J2270; J2405

== ENCOUNTER 2018-08-16 11:57 | Outpatient (CLI) | payer MEDICARE | END 2018-08-16 11:58 | disposition home or self-care (01) | LOC: C.VASC 11:58 ==

== ENCOUNTER 2018-11-10 15:32 | Outpatient (CLI) | payer MEDICARE | END 2018-11-10 15:33 | disposition home or self-care (01) | LOC: C.MRIC 15:32 | DX: M54.16 Radiculopathy, lumbar region (principal); M79.605 Pain in left leg; M54.5 Low back pain; M16.12 Unilateral primary osteoarthritis, left hip ==

== ENCOUNTER 2018-11-22 16:31 | Outpatient (CLI) | payer MEDICARE | END 2018-11-22 16:32 | disposition home or self-care (01) | LOC: C.MRIC 16:31 | DX: M79.605 Pain in left leg (principal) ==